=== PATIENT | male | born 1990 | race Caucasian/White ===

== ENCOUNTER 2018-03-25 08:27 | Emergency (ER) | payer OTHER, SELFPAY ==
--- NOTE | 2018-03-25 08:29 | RAD_ITS ---
STUDY: X-RAY CHEST REASON FOR EXAM: Male, 28 years old. Status post fall TECHNIQUE: Single AP portable view of the chest. COMPARISON: None. FINDINGS: Patient has been intubated with ET tube tip terminating roughly 5 cm from the nicolasa The lungs are clear and expanded. There is no demonstrated pleural abnormality. Normal size heart. Normal mediastinum and naya. Normal visualized pulmonary arteries. Normal visualized aortic arch and descending thoracic aorta. Normal visualized thoracic spine. Normal visualized ribs, clavicles, and shoulders. There is no demonstrated abnormality of the visualized soft tissue structures of the upper abdomen. RAD/Chest 1 View IMPRESSION: Normal x-ray examination of the chest. Electronically Signed: Gerry Mclean DO at 9:31 EST Tel , Service support ,
[2018-03-25 08:30] VITALS: PULSE 171; RESP 16; TEMP 36.4; O2SAT 100; BMI 24.4
--- NOTE | 2018-03-25 08:30 | RAD_ITS ---
STUDY: X-RAY - CERVICAL SPINE REASON FOR EXAM: Male, 28 years old. Status post fall. TECHNIQUE: Single lateral view(s) of the cervical spine were obtained. COMPARISON: None FINDINGS: There is straightening of the normal cervical lordosis. Normal vertebral bodies and endplates. Normal disc space heights. Normal visualized intervertebral neuroforamina. The soft tissue structures are unremarkable. RAD/Spine 1 View Any Level IMPRESSION: Limited exam with one view only. No gross evidence of acute fracture Electronically Signed: Gerry Mclean DO at 9:31 EST Tel , Service support ,
[2018-03-25] MEDS: Rocuronium Bromide 50 MG/5 ML Vial IV (08:35)
--- NOTE | 2018-03-25 08:37 | RAD_ITS ---
STUDY: X-RAY - PELVIS REASON FOR EXAM: Male, 28 years old. Status post fall 10 feet TECHNIQUE: One view of the pelvis was obtained. COMPARISON: None. FINDINGS: There is a non-specific bowel gas pattern. Normal visualized soft tissue structures. Normal bilateral iliac wings, sacroiliac joints and visualized sacrum. Normal visualized bilateral superior and inferior pubic rami. Normal pubic symphysis. Normal ischial tuberosities. Normal visualized right femoral head. Normal right acetabulum. Normal right hip joint. Normal visualized left femoral head. Normal left acetabulum. Normal left hip joint. RAD/Pelvis 1 or 2 Views IMPRESSION: Normal x-ray examination of the pelvis. Electronically Signed: Gerry Mclean DO at 9:30 EST Tel , Service support ,
[2018-03-25 08:47] VITALS: BP 142/62; PULSE 162; RESP 16; O2SAT 100
[2018-03-25 08:57] VITALS: BP 106/77; PULSE 109; RESP 16; O2SAT 100
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
[2018-03-25 09:05] VITALS: BP 127/79; PULSE 155; RESP 16; O2SAT 100
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
[2018-03-25] MEDS: Lactated Ringers 1,000 ML 999 ML IV (09:21)
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
[2018-03-25 09:27] VITALS: BP 127/79; PULSE 155; RESP 16; O2SAT 100
--- NOTE | 2018-03-25 11:01 | EKG12_ITS ---
Test Reason : Blood Pressure : / mmHG Vent. Rate : 166 BPM Atrial Rate : 166 BPM P-R Int : 094 ms QRS Dur : 094 ms QT Int : 254 ms P-R-T Axes : 075 083 068 degrees QTc Int : 422 ms Sinus tachycardia with short FL Incomplete right bundle branch block Borderline ECG Confirmed by JOSR SAGASTUME, GAGE ([id number]), staff editor TRAN [place] ([id number] on 03/28/2018 2:23:06 PM Referred By: ROYCE Confirmed By:GAGE OVALLES MD
--- NOTE | 2018-03-26 22:20 | ED.RN ---
Mother Called with concerns for lost quinones, looked through charting and called primary nurse. No one is able to recall a missing quinones at this time. Mother made aware
--- OUTSIDE RECORDS SUMMARY | 2018-05-06 21:37 | XMS RPT_ITS ---
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 MCHC 31.0 LAB PLT 150-400 K/uL High PLT 503 LAB RDW 11.5-14.5 % High RDW-CV 17.5 LAB MPV 8.5-11.5 fL Low MPV 7.9 Performed By: #### CBC #### [facility] [address] [place] [address], BASIC METABOLIC PANEL Collected: 04/15/2018 Status: F [facility] REPOS[facility] TYPE CODE TESTS RESULT OUT OF REFERENCE UNITS RANGE LAB GLU 68-110 mg/dL GLU High 116 LAB NA3 135-148 mmol/L Low NA 131 LAB POT 3.3-5.3 mmol/L K 3.8 LAB CO2 21-30 mmol/L CO2 24 LAB CHLOR 97-111 mmol/L CL 101 LAB BUN 8-22 mg/dL BUN 14 LAB CREAT 0.80-1.30 mg/dL Low CREAT 0.40 LAB CA 8.4-10.4 mg/dL Low CA 7.3 LAB ANION GAP 5-13 ANION GAP 10 LAB eGFR >=60 mL/min/1.73 sqm ESTIMATED GFR 164 (CKD-EPI) Performed By: #### LARRY8, PHOS, MG #### [facility] [address] [place] [address], PHOSPHORUS Collected: 04/15/2018 Status: F Source: THE 2:23 AM [facility] TYPE CODE TESTS RESULT OUT OF RANGE REFERENCE UNITS LAB PHOS 2.5-4.8 mg/dL PHOS 3.5 Performed By: #### BHARAT, PHOS, MG #### [facility] [address] [place] [address], MAGNESIUM Collected: 04/15/2018 Status: F [facility] REPOS[facility] TYPE CODE TESTS RESULT OUT OF RANGE REFERENCE UNITS LAB mag 1.6-2.8 mg/dL MG 1.8 Performed By: #### CH8, PHOS, MG #### [facility] [address] [place] [address], COMPLETE BLOOD COUNT Collected: 04/14/2018 Status: F [facility] PM SYSTEM REPOSITORY TYPE CODE TESTS RESULT OUT OF RANGE REFERENCE UNITS LAB WBC 4.5-11.5 K/uL High WBC 21.3 LAB RBC 4.50-5.90 M/uL Low RBC 2.70 LAB HGB 13.9-16.3 g/dL Low HGB 7.6 LAB HCT 41.0-53.0 % Low HCT 24.5 LAB MCV 80-100 fL MCV 91 LAB MCH 26.0-34.0 pg MCH 28.1 LAB MCHC 32.0-35.9 g/dL Low MCHC 31.0 LAB PLT 150-400 K/uL High PLT 519 LAB RDW 11.5-14.5 % High RDW-CV 17.2 LAB MPV 8.5-11.5 fL Low MPV 7.8 Performed By: #### CBC #### [facility] [address] [place] [address], RED BLOOD CELL Collected: 04/14/2018 Status: F Source: [facility] COMPONENT 11:18 AM SYSTEM REPOSITORY TYPE CODE TESTS RESULT OUT OF REFERENCE UNITS RANGE LAB 99 BB ORDER Product status ITEM info to follow Performed By: #### RBO #### [facility] [address] [place] [address], RED BLOOD CELL UNIT Collected: 04/14/2018 Status: C Source: [facility] STATUS 11:18 AM SYSTEM REPOSITORY TYPE CODE TESTS RESULT OUT OF REFERENCE UNITS RANGE LAB XM CROSSMATCH INTERPRETATION Compatible (E) LAB UT BLOOD PRODUCT 6200 UNIT TYPE Result Comment: A Pos LAB UN BLOOD PRODUCT [id number] UNIT INFO LAB ST BLOOD PRODUCT Issued STATUS LAB PI BLOOD PRODUCT Red Blood Cells DESCRIPTION LAB SPC BLOOD PRODUCT [id number] CODE Performed By: #### RBU #### [facility] [address] [place] [address], TYPE AND SCREEN Collected: 04/14/2018 Status: F Source: [facility] 10:23 AM SYSTEM REPOSITORY TYPE CODE TESTS RESULT OUT OF REFERENCE UNITS RANGE LAB I ABORH A ABO Positive RH TYPE LAB ABSC INT ABSC Negative INT Performed By: #### TS #### [facility] [address] [place] [address], COMPLETE BLOOD COUNT Collected: 04/14/2018 Status: F Source: [facility] 2:28 AM SYSTEM REPOSITORY TYPE CODE TESTS RESULT OUT OF RANGE REFERENCE UNITS LAB WBC 4.5-11.5 K/uL High WBC 14.5 LAB RBC 4.50-5.90 M/uL Low RBC 2.53 LAB HGB 13.9-16.3 g/dL Low HGB 7.1 LAB HCT 41.0-53.0 % Low HCT 23.2 LAB MCV 80-100 fL MCV 92 LAB MCH 26.0-34.0 pg MCH 28.1 LAB MCHC 32.0-35.9 g/dL Low MCHC 30.6 LAB PLT 150-400 K/uL High PLT 497 LAB RDW 11.5-14.5 % High RDW-CV 17.3 LAB MPV 8.5-11.5 fL Low MPV 7.8 Performed By: #### CBC #### [facility] [address] [place] [address], BASIC METABOLIC PANEL Collected: 04/14/2018 Status: F [facility] AM SYSTEM REPOSITORY TYPE CODE TESTS RESULT OUT OF REFERENCE UNITS RANGE LAB GLU 68-110 mg/dL GLU 109 LAB NA3 135-148 mmol/L NA 135 LAB POT 3.3-5.3 mmol/L K 4.0 LAB CO2 21-30 mmol/L CO2 24 LAB CHLOR 97-111 mmol/L CL 107 LAB BUN 8-22 mg/dL BUN 15 LAB CREAT 0.80-1.30 mg/dL Low CREAT 0.44 LAB CA 8.4-10.4 mg/dL Low CA 7.5 LAB ANION GAP 5-13 ANION GAP 8 LAB eGFR >=60 mL/min/1.73 sqm ESTIMATED GFR 158 (CKD-EPI) Performed By: #### BHARAT, PHOS, MG #### [facility] [address] [place] [address], PHOSPHORUS Collected: 04/14/2018 Status: F Source: [facility] 2[facility]28 [facility] REPOS[facility] TYPE CODE TESTS RESULT OUT OF RANGE REFERENCE UNITS LAB PHOS 2.5-4.8 mg/dL PHOS 3.8 Performed By: #### CHHaydee, PHOS, MG #### [facility] [address] [place] [address], MAGNESIUM Collected: 04/14/2018 Status: F [facility] AM SYSTEM REPOSITORY TYPE CODE TESTS RESULT OUT OF RANGE REFERENCE UNITS LAB mag 1.6-2.8 mg/dL MG 2.1 Performed By: #### LARRY8, PHOS, MG #### [facility] [address] [place] [address], COMPLETE BLOOD COUNT Collected: 04/13/2018 Status: F [facility] REPOS[facility] TYPE CODE TESTS RESULT OUT OF RANGE REFERENCE UNITS LAB WBC 4.5-11.5 K/uL High WBC 17.8 LAB RBC 4.50-5.90 M/uL Low RBC 2.46 LAB HGB 13.9-16.3 g/dL Low HGB 7.1 LAB HCT 41.0-53.0 % Low HCT 22.5 LAB MCV 80-100 fL MCV 92 LAB MCH 26.0-34.0 pg MCH 28.9 LAB MCHC 32.0-35.9 g/dL Low MCHC 31.6 LAB PLT 150-400 K/uL High PLT 487 LAB RDW 11.5-14.5 % High RDW-CV 17.2 LAB MPV 8.5-11.5 fL Low MPV 7.8 Performed By: #### CBC #### [facility] [address] [place] [address], ANTI FXA-LMW HEPARIN Collected: 04/13/2018 Status: F Source: [facility] 2:14 AM SYSTEM REPOSITORY Order Comment: The recommended therapeutic range for treatment of thrombosis with Low Molecular Weight Heparin is 0.5 - 1.0 IU/mL TYPE CODE TESTS RESULT OUT OF REFERENCE UNITS RANGE LAB mN IU/mL ANTI FXA-LMW 0.23 HEPARIN ASSAY Performed By: #### JANEL #### [facility] [address] [place] [address], BASIC METABOLIC PANEL Collected: 04/13/2018 Status: F Source: [facility] 2:14 AM SYSTEM REPOSITORY TYPE CODE TESTS RESULT OUT OF REFERENCE UNITS RANGE LAB GLU 68-110 mg/dL GLU High 117 LAB NA3 135-148 mmol/L Low NA 133 LAB POT 3.3-5.3 mmol/L K 3.8 LAB CO2 21-30 mmol/L CO2 21 LAB CHLOR 97-111 mmol/L CL 107 LAB BUN 8-22 mg/dL BUN 17 LAB CREAT 0.80-1.30 mg/dL Low CREAT 0.49 LAB CA 8.4-10.4 mg/dL Low CA 7.3 LAB ANION GAP 5-13 ANION GAP 9 LAB eGFR >=60 mL/min/1.73 sqm ESTIMATED GFR 151 (CKD-EPI) Performed By: #### BHARAT, PHOS, MG, HEPATIC #### [facility] [address] [place] [address], PHOSPHORUS Collected: 04/13/2018 Status: F Source: [facility] 2:14 AM [facility]POS[facility] TYPE CODE TESTS RESULT OUT OF RANGE REFERENCE UNITS LAB PHOS 2.5-4.8 mg/dL PHOS 3.9 Performed By: #### BHARAT, PHOS, MG, HEPATIC #### [facility] [address] [place] [address], MAGNESIUM Collected: 04/13/2018 Status: F Source: [facility] 2:14 AM SYSTEM REPOSITORY TYPE CODE TESTS RESULT OUT OF RANGE REFERENCE UNITS LAB mag 1.6-2.8 mg/dL MG 1.7 Performed By: #### BHARAT, PHOS, MG, HEPATIC #### [facility] [address] [place] [address], HEPATIC FUNCTION Collected: 04/13/2018 Status: F Source: [facility] PANEL 2:14 AM SYSTEM REPOSITORY TYPE CODE TESTS RESULT OUT OF REFERENCE UNITS RANGE LAB ALB 3.4-5.1 g/dL Low ALB 1.6 LAB DBILI 0.10-0.30 mg/dL DBIL 0.10 LAB TBILI 0.1-1.5 mg/dL TBIL 0.2 LAB ALKPHOS 50-190 IU/L ALK 95 LAB ALT2 7-40 IU/L High ALT 70 LAB AST2 7-40 IU/L High AST 65 LAB tp 6.2-8.3 g/dL Low TP 4.3 Performed By: #### LARRY8, PHOS, MG, HEPATIC #### [facility] [address] [place] [address], COMPLETE BLOOD COUNT Collected: 04/12/2018 Status: F [facility] REPOS[facility]ORY TYPE CODE TESTS RESULT OUT OF RANGE REFERENCE UNITS LAB WBC 4.5-11.5 K/uL High WBC 18.7 LAB RBC 4.50-5.90 M/uL Low RBC 2.67 LAB HGB 13.9-16.3 g/dL Low HGB 7.5 LAB HCT 41.0-53.0 % Low HCT 24.6 LAB MCV 80-100 fL MCV 92 LAB MCH 26.0-34.0 pg MCH 28.1 LAB MCHC 32.0-35.9 g/dL Low MCHC 30.5 LAB PLT 150-400 K/uL High PLT 566 LAB RDW 11.5-14.5 % High RDW-CV 17.4 LAB MPV 8.5-11.5 fL Low MPV 7.8 Performed By: #### CBC #### [facility] [address] [place] [address], BASIC METABOLIC PANEL Collected: 04/12/2018 Status: F [facility] AM SYSTEM REPOSITORY TYPE CODE TESTS RESULT OUT OF REFERENCE UNITS RANGE LAB GLU 68-110 mg/dL GLU High 116 LAB NA3 135-148 mmol/L NA 137 LAB POT 3.3-5.3 mmol/L K 3.6 LAB CO2 21-30 mmol/L CO2 22 LAB CHLOR 97-111 mmol/L CL 109 LAB BUN 8-22 mg/dL BUN 16 LAB CREAT 0.80-1.30 mg/dL Low CREAT 0.48 LAB CA 8.4-10.4 mg/dL Low CA 7.5 LAB ANION GAP 5-13 ANION GAP 10 LAB eGFR >=60 mL/min/1.73 sqm ESTIMATED GFR 152 (CKD-EPI) Performed By: #### BHARAT, PHOS, MG #### [facility] [address] [place] [address], PHOSPHORUS Collected: 04/12/2018 Status: F Source: THE 5:07 AM [facility] REPOS[facility] TYPE CODE TESTS RESULT OUT OF RANGE REFERENCE UNITS LAB PHOS 2.5-4.8 mg/dL PHOS 3.4 Performed By: #### CH8, PHOS, MG #### [facility] [address] [place] [address], MAGNESIUM Collected: 04/12/2018 Status: F [facility] AM SYSTEM REPOSITORY TYPE CODE TESTS RESULT OUT OF RANGE REFERENCE UNITS LAB mag 1.6-2.8 mg/dL MG 1.9 Performed By: #### LARRY8, PHOS, MG #### [facility] [address] [place] [address], COMPLETE BLOOD COUNT Collected: 04/11/2018 Status: F Source: [facility] 12:12 AM SYSTEM REPOSITORY TYPE CODE TESTS RESULT OUT OF RANGE REFERENCE UNITS LAB WBC 4.5-11.5 K/uL High WBC 14.9 LAB RBC 4.50-5.90 M/uL Low RBC 2.40 LAB HGB 13.9-16.3 g/dL Low Alert HGB 7.0 LAB HCT 41.0-53.0 % Low HCT 21.7 LAB MCV 80-100 fL MCV 90 LAB MCH 26.0-34.0 pg MCH 29.2 LAB MCHC 32.0-35.9 g/dL MCHC 32.3 LAB PLT 150-400 K/uL High PLT 483 LAB RDW 11.5-14.5 % High RDW-CV 17.3 LAB MPV 8.5-11.5 fL Low MPV 7.8 Performed By: #### CBC #### [facility] [address] [place] [address], BASIC METABOLIC PANEL Collected: 04/11/2018 Status: F Source: [facility] 12:12 AM SYSTEM REPOSITORY TYPE CODE TESTS RESULT OUT OF REFERENCE UNITS RANGE LAB GLU 68-110 mg/dL GLU High 131 LAB NA3 135-148 mmol/L Low NA 134 LAB POT 3.3-5.3 mmol/L K 3.3 LAB CO2 21-30 mmol/L CO2 24 LAB CHLOR 97-111 mmol/L CL 106 LAB BUN 8-22 mg/dL BUN 14 LAB CREAT 0.80-1.30 mg/dL Low CREAT 0.58 LAB CA 8.4-10.4 mg/dL Low CA 7.1 LAB ANION GAP 5-13 ANION GAP 7 LAB eGFR >=60 mL/min/1.73 sqm ESTIMATED GFR 141 (CKD-EPI) Performed By: #### CH8, PHOS, MG #### [facility] [address] [place] [address], PHOSPHORUS Collected: 04/11/2018 Status: F Source: THE 12:12 AM [facility] REPOSITORY TYPE CODE TESTS RESULT OUT OF RANGE REFERENCE UNITS LAB PHOS 2.5-4.8 mg/dL PHOS 3.4 Performed By: #### CH8, PHOS, MG #### [facility] [address] [place] [address], MAGNESIUM Collected: 04/11/2018 Status: F Source: [facility] 12:12 AM SYSTEM REPOSITORY TYPE CODE TESTS RESULT OUT OF RANGE REFERENCE UNITS LAB mag 1.6-2.8 mg/dL MG 1.9 Performed By: #### CH8, PHOS, MG #### [facility] [address] [place] [address], ANTI FXA-LMW HEPARIN Collected: 04/10/2018 Status: F Source: [facility] 1:42 PM SYSTEM REPOSITORY Order Comment: The recommended therapeutic range for treatment of thrombosis with Low Molecular Weight Heparin is 0.5 - 1.0 IU/mL TYPE CODE TESTS RESULT OUT OF REFERENCE UNITS RANGE LAB mN IU/mL ANTI FXA-LMW 0.11 HEPARIN ASSAY Performed By: #### JANEL #### [facility] [address] [place] [address], COMPLETE BLOOD COUNT Collected: 04/10/2018 Status: F Source: [facility] 7:33 AM SYSTEM REPOSITORY TYPE CODE TESTS RESULT OUT OF RANGE REFERENCE UNITS LAB WBC 4.5-11.5 K/uL High WBC 15.2 LAB RBC 4.50-5.90 M/uL Low RBC 2.84 LAB HGB 13.9-16.3 g/dL Low HGB 7.9 LAB HCT 41.0-53.0 % Low HCT 25.0 LAB MCV 80-100 fL MCV 88 LAB MCH 26.0-34.0 pg MCH 27.8 LAB MCHC 32.0-35.9 g/dL Low MCHC 31.6 LAB PLT 150-400 K/uL High PLT 549 LAB RDW 11.5-14.5 % High RDW-CV 17.0 LAB MPV 8.5-11.5 fL Low MPV 7.7 Performed By: #### CBC #### [facility] [address] [place] [address], BASIC METABOLIC PANEL Collected: 04/10/2018 Status: F Source: [facility] 3:11 AM SYSTEM REPOSITORY TYPE CODE TESTS RESULT OUT OF REFERENCE UNITS RANGE LAB GLU 68-110 mg/dL GLU High 122 LAB NA3 135-148 mmol/L Low NA 134 LAB POT 3.3-5.3 mmol/L K 4.9 LAB CO2 21-30 mmol/L CO2 24 LAB CHLOR 97-111 mmol/L CL 101 LAB BUN 8-22 mg/dL BUN 16 LAB CREAT 0.80-1.30 mg/dL Low CREAT 0.68 LAB CA 8.4-10.4 mg/dL Low CA 7.2 LAB ANION GAP 5-13 ANION High GAP 14 LAB eGFR >=60 mL/min/1.73 sqm ESTIMATED GFR 132 (CKD-EPI) Performed By: #### CH8, MG, CRP, HEPATIC, PAB #### [facility] [address] [place] [address], MAGNESIUM Collected: 04/10/2018 Status: F [facility] SYSTEM REPOSITORY TYPE CODE TESTS RESULT OUT OF RANGE REFERENCE UNITS LAB mag 1.6-2.8 mg/dL MG 1.7 Performed By: #### LARRY8, MG, CRP, HEPATIC, PAB #### [facility] [address] [place] [address], C-REACTIVE PROTEIN Collected: 04/10/2018 Status: F Source: THE 3:11 AM [facility] REPOSITORY TYPE CODE TESTS RESULT OUT OF RANGE REFERENCE UNITS LAB CRP <0.8 mg/dL High CRP 30.8 Performed By: #### LARRY8, MG, CRP, HEPATIC, PAB #### [facility] [address] [place] [address], HEPATIC FUNCTION Collected: 04/10/2018 Status: F [facility] 3:11 AM SYSTEM REPOSITORY TYPE CODE TESTS RESULT OUT OF REFERENCE UNITS RANGE LAB ALB 3.4-5.1 g/dL Low ALB 1.5 LAB DBILI 0.10-0.30 mg/dL DBIL 0.10 LAB TBILI 0.1-1.5 mg/dL TBIL 0.6 LAB ALKPHOS 50-190 IU/L ALK 72 LAB ALT2 7-40 IU/L High ALT 77 LAB AST2 7-40 IU/L High AST 59 LAB tp 6.2-8.3 g/dL Low TP 3.8 Performed By: #### CH8, MG, CRP, HEPATIC, PAB #### [facility] [address] [place] [address], PREALBUMIN Collected: 04/10/2018 Status: F Source: [facility] 3:11 [facility] TYPE CODE TESTS RESULT OUT OF REFERENCE UNITS RANGE LAB eT PAB 21.7-43.3 mg/dL Low PREALBUMIN 8.1 Performed By: #### CH8, MG, CRP, HEPATIC, PAB #### [facility] [address] [place] [address], PHOSPHORUS Collected: 04/10/2018 Status: F Source: THE 3:11 AM [facility] REPOSITORY TYPE CODE TESTS RESULT OUT OF RANGE REFERENCE UNITS LAB PHOS 2.5-4.8 mg/dL High PHOS 5.7 Performed By: #### PHOS #### [facility] [address] [place] [address], RED BLOOD CELL Collected: 04/09/2018 Status: F Source: [facility] COMPONENT 8:08 PM SYSTEM REPOSITORY TYPE CODE TESTS RESULT OUT OF REFERENCE UNITS RANGE LAB 99 BB ORDER Product status ITEM info to follow Performed By: #### RBO #### [facility] [address] [place] [address], RED BLOOD CELL UNIT Collected: 04/09/2018 Status: C Source: [facility] STATUS 8:08 PM SYSTEM REPOSITORY TYPE CODE TESTS RESULT OUT OF REFERENCE UNITS RANGE LAB XM CROSSMATCH INTERPRETATION Compatible (E) LAB UT BLOOD PRODUCT 6200 UNIT TYPE Result Comment: A Pos LAB UN BLOOD PRODUCT [id number] UNIT INFO LAB ST BLOOD PRODUCT Released to avail STATUS LAB PI BLOOD PRODUCT Red Blood Cells DESCRIPTION LAB SPC BLOOD PRODUCT [id number] CODE Performed By: #### RBU #### [facility] [address] [place] [address], RED BLOOD CELL UNIT Collected: 04/09/2018 Status: C Source: [facility] STATUS 8:08 PM SYSTEM REPOSITORY TYPE CODE TESTS RESULT OUT OF REFERENCE UNITS RANGE LAB XM CROSSMATCH INTERPRETATION Compatible (E) LAB UT BLOOD PRODUCT 6200 UNIT TYPE Result Comment: A Pos LAB UN BLOOD PRODUCT [id number] UNIT INFO LAB ST BLOOD PRODUCT Released to avail STATUS LAB PI BLOOD PRODUCT Red Blood Cells DESCRIPTION LAB SPC BLOOD PRODUCT [id number] CODE Performed By: #### RBU #### [facility] [address] [place] [address], RED BLOOD CELL UNIT Collected: 04/09/2018 Status: C Source: [facility] STATUS 8:08 PM SYSTEM REPOSITORY TYPE CODE TESTS RESULT OUT OF REFERENCE UNITS RANGE LAB XM CROSSMATCH INTERPRETATION Compatible (E) LAB UT BLOOD PRODUCT 6200 UNIT TYPE Result Comment: A Pos LAB UN BLOOD PRODUCT [id number] UNIT INFO LAB ST BLOOD PRODUCT Transfused STATUS LAB PI BLOOD PRODUCT Red Blood Cells DESCRIPTION LAB SPC BLOOD PRODUCT [id number] CODE Performed By: #### RBU #### [facility] [address] [place] [address], RED BLOOD CELL UNIT Collected: 04/09/2018 Status: C Source: [facility] STATUS 8:08 PM SYSTEM REPOSITORY TYPE CODE TESTS RESULT OUT OF REFERENCE UNITS RANGE LAB XM CROSSMATCH INTERPRETATION Compatible (E) LAB UT BLOOD PRODUCT 6200 UNIT TYPE Result Comment: A Pos LAB UN BLOOD PRODUCT [id number] UNIT INFO LAB ST BLOOD PRODUCT Transfused STATUS LAB PI BLOOD PRODUCT Red Blood Cells DESCRIPTION LAB SPC BLOOD PRODUCT [id number] CODE Performed By: #### RBU #### [facility] [address] [place] [address], COMPLETE BLOOD COUNT Collected: 04/09/2018 Status: F Source: [facility] 4:34 AM SYSTEM REPOSITORY TYPE CODE TESTS RESULT OUT OF RANGE REFERENCE UNITS LAB WBC 4.5-11.5 K/uL High WBC 13.5 LAB RBC 4.50-5.90 M/uL Low RBC 2.53 LAB HGB 13.9-16.3 g/dL Low HGB 7.4 LAB HCT 41.0-53.0 % Low HCT 23.4 LAB MCV 80-100 fL MCV 93 LAB MCH 26.0-34.0 pg MCH 29.2 LAB MCHC 32.0-35.9 g/dL Low MCHC 31.6 LAB PLT 150-400 K/uL High PLT 719 LAB RDW 11.5-14.5 % High RDW-CV 15.4 LAB MPV 8.5-11.5 fL Low MPV 8.0 Performed By: #### CBC #### [facility] [address] [place] [address], BASIC METABOLIC PANEL Collected: 04/09/2018 Status: F Source: [facility] 4:34 AM SYSTEM REPOSITORY TYPE CODE TESTS RESULT OUT OF REFERENCE UNITS RANGE LAB GLU 68-110 mg/dL GLU 102 LAB NA3 135-148 mmol/L Low NA 131 LAB POT 3.3-5.3 mmol/L K 4.6 LAB CO2 21-30 mmol/L CO2 27 LAB CHLOR 97-111 mmol/L CL 97 LAB BUN 8-22 mg/dL BUN 16 LAB CREAT 0.80-1.30 mg/dL Low CREAT 0.51 LAB CA 8.4-10.4 mg/dL Low CA 7.5 LAB ANION GAP 5-13 ANION GAP 12 LAB eGFR >=60 mL/min/1.73 sqm ESTIMATED GFR 148 (CKD-EPI) Performed By: #### CH8, PHOS, MG #### [facility] [address] [place] [address], PHOSPHORUS Collected: 04/09/2018 Status: F Source: THE 4:34 AM NICHOLAS [facility] REPOS[facility] TYPE CODE TESTS RESULT OUT OF RANGE REFERENCE UNITS LAB PHOS 2.5-4.8 mg/dL PHOS 2.8 Performed By: #### BHARAT, PHOS, MG #### [facility] [address] [place] [address], MAGNESIUM Collected: 04/09/2018 Status: F [facility] REPOSITORY TYPE CODE TESTS RESULT OUT OF RANGE REFERENCE UNITS LAB mag 1.6-2.8 mg/dL MG 1.8 Performed By: #### LARRY8, PHOS, MG #### [facility] [address] [place] [address], BASIC METABOLIC PANEL Collected: 04/08/2018 Status: F [facility] REPOSITORY TYPE CODE TESTS RESULT OUT OF REFERENCE UNITS RANGE LAB GLU 68-110 mg/dL GLU 100 LAB NA3 135-148 mmol/L NA 135 LAB POT 3.3-5.3 mmol/L K 4.6 LAB CO2 21-30 mmol/L CO2 29 LAB CHLOR 97-111 mmol/L CL 101 LAB BUN 8-22 mg/dL BUN 19 LAB CREAT 0.80-1.30 mg/dL Low CREAT 0.56 LAB CA 8.4-10.4 mg/dL Low CA 7.4 LAB ANION GAP 5-13 ANION GAP 10 LAB eGFR >=60 mL/min/1.73 sqm ESTIMATED GFR 143 (CKD-EPI) Performed By: #### LARRY8, MG, PHOS #### [facility] [address] [place] [address], MAGNESIUM Collected: 04/08/2018 Status: F Source: [facility] 1:23 AM SYSTEM REPOSITORY TYPE CODE TESTS RESULT OUT OF RANGE REFERENCE UNITS LAB mag 1.6-2.8 mg/dL MG 2.0 Performed By: #### LARRY8, MG, PHOS #### [facility] [address] [place] [address], PHOSPHORUS Collected: 04/08/2018 Status: F Source: THE 1:23 AM [facility] REPOSITORY TYPE CODE TESTS RESULT OUT OF RANGE REFERENCE UNITS LAB PHOS 2.5-4.8 mg/dL PHOS 3.1 Performed By: #### BHARAT, MG, PHOS #### [facility] [address] [place] [address], COMPLETE BLOOD COUNT Collected: 04/08/2018 Status: F Source: [facility] 1:22 AM SYSTEM REPOSITORY TYPE CODE TESTS RESULT OUT OF RANGE REFERENCE UNITS LAB WBC 4.5-11.5 K/uL WBC 11.1 LAB RBC 4.50-5.90 M/uL Low RBC 3.09 LAB HGB 13.9-16.3 g/dL Low HGB 9.0 LAB HCT 41.0-53.0 % Low HCT 28.8 LAB MCV 80-100 fL MCV 93 LAB MCH 26.0-34.0 pg MCH 29.1 LAB MCHC 32.0-35.9 g/dL Low MCHC 31.3 LAB PLT 150-400 K/uL High PLT 615 LAB RDW 11.5-14.5 % High RDW-CV 16.0 LAB MPV 8.5-11.5 fL Low MPV 8.3 Performed By: #### CBC #### [facility] [address] [place] [address], Observed: 04/07/2018 Status: F Source: [facility] BLOOD CULTURE 12:52 AM SYSTEM REPOSITORY C BLOOD: No Growth Performed By: #### C BLOOD #### [facility] [address] [place] [address] COMPLETE BLOOD COUNT Collected: 04/07/2018 Status: F Source: [facility] 12:51 AM SYSTEM REPOSITORY TYPE CODE TESTS RESULT OUT OF RANGE REFERENCE UNITS LAB WBC 4.5-11.5 K/uL High WBC 14.1 LAB RBC 4.50-5.90 M/uL Low RBC 2.40 LAB HGB 13.9-16.3 g/dL Low HGB 7.2 LAB HCT 41.0-53.0 % Low HCT 22.1 LAB MCV 80-100 fL MCV 92 LAB MCH 26.0-34.0 pg MCH 30.0 LAB MCHC 32.0-35.9 g/dL MCHC 32.6 LAB PLT 150-400 K/uL High PLT 635 LAB RDW 11.5-14.5 % High RDW-CV 16.7 LAB MPV 8.5-11.5 fL Low MPV 8.1 Performed By: #### CBC #### [facility] [address] [place] [address], BASIC METABOLIC PANEL Collected: 04/07/2018 Status: F Source: [facility] 12:51 AM SYSTEM REPOSITORY TYPE CODE TESTS RESULT OUT OF REFERENCE UNITS RANGE LAB GLU 68-110 mg/dL GLU High 135 LAB NA3 135-148 mmol/L NA 135 LAB POT 3.3-5.3 mmol/L K 3.9 LAB CO2 21-30 mmol/L CO2 27 LAB CHLOR 97-111 mmol/L CL 102 LAB BUN 8-22 mg/dL BUN 19 LAB CREAT 0.80-1.30 mg/dL Low CREAT 0.42 LAB CA 8.4-10.4 mg/dL Low CA 7.3 LAB ANION GAP 5-13 ANION GAP 10 LAB eGFR >=60 mL/min/1.73 sqm ESTIMATED GFR 161 (CKD-EPI) Performed By: #### CH8, PHOS, HEPATIC, MG #### [facility] [address] [place] [address], PHOSPHORUS Collected: 04/07/2018 Status: F Source: THE 12:51 AM [facility] REPOSITORY TYPE CODE TESTS RESULT OUT OF RANGE REFERENCE UNITS LAB PHOS 2.5-4.8 mg/dL Low PHOS 2.2 Performed By: #### CH8, PHOS, HEPATIC, MG #### [facility] [address] [place] [address], HEPATIC FUNCTION Collected: 04/07/2018 Status: F Source: [facility] PANEL 12:51 AM SYSTEM REPOSITORY TYPE CODE TESTS RESULT OUT OF REFERENCE UNITS RANGE LAB ALB 3.4-5.1 g/dL Low ALB 1.5 LAB DBILI 0.10-0.30 mg/dL DBIL 0.10 LAB TBILI 0.1-1.5 mg/dL TBIL 0.4 LAB ALKPHOS 50-190 IU/L ALK 64 LAB ALT2 7-40 IU/L High ALT 75 LAB AST2 7-40 IU/L High AST 76 LAB tp 6.2-8.3 g/dL Low TP 3.5 Performed By: #### CH8, PHOS, HEPATIC, MG #### [facility] [address] [place] [address], MAGNESIUM Collected: 04/07/2018 Status: F Source: [facility] 12:51 AM SYSTEM REPOSITORY TYPE CODE TESTS RESULT OUT OF RANGE REFERENCE UNITS LAB mag 1.6-2.8 mg/dL MG 1.9 Performed By: #### CH8, PHOS, HEPATIC, MG #### [facility] [address] [place] [address], TYPE AND SCREEN Collected: 04/06/2018 Status: F Source: [facility] 2:18 AM SYSTEM REPOSITORY TYPE CODE TESTS RESULT OUT OF REFERENCE UNITS RANGE LAB I ABORH A ABO Positive RH TYPE LAB ABSC INT ABSC Negative INT Performed By: #### TS #### [facility] [address] [place] [address], RED BLOOD CELL Collected: 04/06/2018 Status: F Source: [facility] COMPONENT 1:37 AM SYSTEM REPOSITORY TYPE CODE TESTS RESULT OUT OF REFERENCE UNITS RANGE LAB 99 BB ORDER Product status ITEM info to follow Performed By: #### RBO #### [facility] [address] [place] [address], RED BLOOD CELL UNIT Collected: 04/06/2018 Status: C Source: [facility] STATUS 1:37 AM SYSTEM REPOSITORY TYPE CODE TESTS RESULT OUT OF REFERENCE UNITS RANGE LAB XM CROSSMATCH INTERPRETATION Compatible (E) LAB UT BLOOD PRODUCT 6200 UNIT TYPE Result Comment: A Pos LAB UN BLOOD PRODUCT [id number] UNIT INFO LAB ST BLOOD PRODUCT Transfused STATUS LAB PI BLOOD PRODUCT Red Blood Cells DESCRIPTION LAB SPC BLOOD PRODUCT [id number] CODE Performed By: #### RBU #### [facility] [address] [place] [address], ANTI FXA-LMW HEPARIN Collected: 04/06/2018 Status: F Source: [facility] 12:44 AM SYSTEM REPOSITORY Order Comment: The recommended therapeutic range for treatment of thrombosis with Low Molecular Weight Heparin is 0.5 - 1.0 IU/mL TYPE CODE TESTS RESULT OUT OF REFERENCE UNITS RANGE LAB mN IU/mL ANTI FXA-LMW 0.22 HEPARIN ASSAY Performed By: #### JANEL #### [facility] [address] [place] [address], BASIC METABOLIC PANEL Collected: 04/06/2018 Status: F Source: [facility] 12:44 AM SYSTEM REPOSITORY TYPE CODE TESTS RESULT OUT OF REFERENCE UNITS RANGE LAB GLU 68-110 mg/dL GLU High 124 LAB NA3 135-148 mmol/L NA 135 LAB POT 3.3-5.3 mmol/L K 4.3 LAB CO2 21-30 mmol/L CO2 26 LAB CHLOR 97-111 mmol/L CL 104 LAB BUN 8-22 mg/dL BUN 20 LAB CREAT 0.80-1.30 mg/dL Low CREAT 0.51 LAB CA 8.4-10.4 mg/dL Low CA 7.2 LAB ANION GAP 5-13 ANION GAP 9 LAB eGFR >=60 mL/min/1.73 sqm ESTIMATED GFR 148 (CKD-EPI) Performed By: #### CH8, PHOS, MG #### [facility] [address] [place] [address], PHOSPHORUS Collected: 04/06/2018 Status: F Source: THE 12:44 AM [facility] REPOSITORY TYPE CODE TESTS RESULT OUT OF RANGE REFERENCE UNITS LAB PHOS 2.5-4.8 mg/dL PHOS 2.9 Performed By: #### CH8, PHOS, MG #### [facility] [address] [place] [address], MAGNESIUM Collected: 04/06/2018 Status: F Source: [facility] 12:44 AM SYSTEM REPOSITORY TYPE CODE TESTS RESULT OUT OF RANGE REFERENCE UNITS LAB mag 1.6-2.8 mg/dL MG 1.7 Performed By: #### CH8DAVIN MG #### [facility] [address] [place] [address], COMPLETE BLOOD COUNT Collected: 04/06/2018 Status: F Source: [facility] 12:44 AM SYSTEM REPOSITORY TYPE CODE TESTS RESULT OUT OF RANGE REFERENCE UNITS LAB WBC 4.5-11.5 K/uL High Alert WBC 25.6 LAB RBC 4.50-5.90 M/uL Low RBC 2.29 LAB HGB 13.9-16.3 g/dL Low Alert HGB 6.9 LAB HCT 41.0-53.0 % Low HCT 21.7 LAB MCV 80-100 fL MCV 95 LAB MCH 26.0-34.0 pg MCH 30.1 LAB MCHC 32.0-35.9 g/dL Low MCHC 31.8 LAB PLT 150-400 K/uL High PLT 619 LAB RDW 11.5-14.5 % High RDW-CV 16.5 LAB MPV 8.5-11.5 fL Low MPV 8.1 Performed By: #### CBC #### [facility]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 Collected: 03/27/2018 Status: F Source: THE 2:10 PM [facility] REPOSITORY TYPE CODE TESTS RESULT OUT OF REFERENCE UNITS RANGE LAB HEMATOCRIT 42.0-52.0 % HEMATOCRIT 45.9 LAB HEMOGLOBIN 14.0-18.0 g/dL HEMOGLOBIN 15.0 LAB F6 95.0-100.0 % OXYHEMOGLOBIN 97.9 LAB CARBOXY <3.0 % CARBOXYHEMOGLOBIN 1.1 LAB CR HBMET <3.0 % CR HBMET 0.8 Performed By: #### CR BGA, CR COOX, CR LYTES, CR GLU, CR ICA, LACT #### [facility] [address] [place] [address], ELECTROLYTES Collected: 03/27/2018 Status: F Source: THE 2:10 PM [facility] TYPE CODE TESTS RESULT OUT OF REFERENCE UNITS RANGE LAB n7 135-148 mmol/L Low SODIUM, 123 WHOLE BLOOD LAB POTWB 3.3-5.3 mmol/L 4.5 POTASSIUM, WHOLE BLOOD LAB n9 97-111 mmol/L CHLORIDE, 101 WHOLE BLOOD LAB CPCR HCO3 22-28 mmol/L CR HCO3 25 Performed By: #### CR BGA, CR COOX, CR LYTES, CR GLU, CR ICA, LACT #### [facility] [address] [place] [address], GLUCOSE, WHOLE BLOOD Collected: 03/27/2018 Status: F Source: [facility] 2:10 PM SYSTEM REPOSITORY TYPE CODE TESTS RESULT OUT OF RANGE REFERENCE UNITS LAB CR GLU 68-98 mg/dL High CR GLU 112 Performed By: #### CR BGA, CR COOX, CR LYTES, CR GLU, CR ICA, LACT #### [facility] [address] [place] [address], CALCIUM, IONIZED Collected: 03/27/2018 Status: F Source: [facility] 2:10 PM SYSTEM REPOSITORY TYPE CODE TESTS RESULT OUT OF RANGE REFERENCE UNITS LAB CR ICA 1.10-1.40 mmol/L Low CR ICA 1.07 Performed By: #### CR BGA, CR COOX, CR LYTES, CR GLU, CR ICA, LACT #### [facility] [address] [place] [address], LACTIC ACID Collected: 03/27/2018 Status: F Source: [facility] 2:10 PM SYSTEM REPOSITORY TYPE CODE TESTS RESULT OUT OF RANGE REFERENCE UNITS LAB CR LACT 0.5-2.0 mmol/L High CR LACT 2.6 Performed By: #### CR BGA, CR COOX, CR LYTES, CR GLU, CR ICA, LACT #### [facility] [address] [place] [address], COMPLETE BLOOD COUNT Collected: 03/27/2018 Status: F Source: [facility] 1:12 AM SYSTEM REPOSITORY TYPE CODE TESTS RESULT OUT OF RANGE REFERENCE UNITS LAB WBC 4.5-11.5 K/uL WBC 8.1 LAB RBC 4.50-5.90 M/uL RBC 4.87 LAB HGB 13.9-16.3 g/dL HGB 16.1 LAB HCT 41.0-53.0 % HCT 45.4 LAB MCV 80-100 fL MCV 93 LAB MCH 26.0-34.0 pg MCH 33.1 LAB MCHC 32.0-35.9 g/dL MCHC 35.5 LAB PLT 150-400 K/uL PLT 154 LAB RDW 11.5-14.5 % RDW-CV 12.3 LAB MPV 8.5-11.5 fL MPV 9.7 Performed By: #### CBC #### [facility] [address] [place] [address], ANTI FXA-LMW HEPARIN Collected: 03/27/2018 Status: F Source: [facility] 1:12 AM SYSTEM REPOSITORY Order Comment: The recommended therapeutic range for treatment of thrombosis with Low Molecular Weight Heparin is 0.5 - 1.0 IU/mL TYPE CODE TESTS RESULT OUT OF REFERENCE UNITS RANGE LAB mN IU/mL ANTI FXA-LMW 0.06 HEPARIN ASSAY Performed By: #### JANEL #### [facility] [address] [place] [address], PHOSPHORUS Collected: 03/27/2018 Status: F Source: THE 1:12 AM [facility] TYPE CODE TESTS RESULT OUT OF RANGE REFERENCE UNITS LAB PHOS 2.5-4.8 mg/dL Low PHOS 1.8 Performed By: #### PHOS, CRP, MG, PAB, CH8 #### [facility] [address] [place] [address], C-REACTIVE PROTEIN Collected: 03/27/2018 Status: F Source: THE 1:12 AM [facility] TYPE CODE TESTS RESULT OUT OF RANGE REFERENCE UNITS LAB CRP <0.8 mg/dL High CRP 25.0 Performed By: #### PHOS, CRP, MG, PAB, CH8 #### [facility] [address] [place] [address], MAGNESIUM Collected: 03/27/2018 Status: F [facility] AM SYSTEM REPOSITORY TYPE CODE TESTS RESULT OUT OF RANGE REFERENCE UNITS LAB mag 1.6-2.8 mg/dL MG 1.7 Performed By: #### PHOS, CRP, MG, PAB, CH8 #### [facility] [address] [place] [address], PREALBUMIN Collected: 03/27/2018 Status: F Source: THE 1:12 AM [facility] REPOSITORY TYPE CODE TESTS RESULT OUT OF REFERENCE UNITS RANGE LAB eT PAB 21.7-43.3 mg/dL Low PREALBUMIN 5.7 Performed By: #### PHOS, CRP, MG, PAB, CH8 #### [facility] [address] [place] [address], BASIC METABOLIC PANEL Collected: 03/27/2018 Status: F Source: [facility] 1:12 AM SYSTEM REPOSITORY TYPE CODE TESTS RESULT OUT OF REFERENCE UNITS RANGE LAB GLU 68-110 mg/dL GLU High 158 LAB NA3 135-148 mmol/L Low NA 128 LAB POT 3.3-5.3 mmol/L K 4.6 LAB CO2 21-30 mmol/L CO2 25 LAB CHLOR 97-111 mmol/L CL 99 LAB BUN 8-22 mg/dL BUN 10 LAB CREAT 0.80-1.30 mg/dL Low CREAT 0.69 LAB CA 8.4-10.4 mg/dL Low CA 7.5 LAB ANION GAP 5-13 ANION GAP 9 LAB eGFR >=60 mL/min/1.73 sqm ESTIMATED GFR 131 (CKD-EPI) Performed By: #### PHOS, CRP, MG, PAB, CH8 #### [facility] [address] [place] [address], ABO RH TYPE Collected: 03/26/2018 Status: F Source: [facility] 1:16 PM SYSTEM REPOSITORY TYPE CODE TESTS RESULT OUT OF REFERENCE UNITS RANGE LAB I ABORH A ABO Positive RH TYPE Performed By: #### ABORH #### [facility] [address] [place] [address], RED BLOOD CELL Collected: 03/26/2018 Status: F Source: [facility] COMPONENT 8:12 AM SYSTEM REPOSITORY TYPE CODE TESTS RESULT OUT OF REFERENCE UNITS RANGE LAB 99 BB ORDER Product status ITEM info to follow Performed By: #### RBO #### [facility] [address] [place] [address], RED BLOOD CELL UNIT Collected: 03/26/2018 Status: C Source: [facility] STATUS 8:12 AM SYSTEM REPOSITORY TYPE CODE TESTS RESULT OUT OF REFERENCE UNITS RANGE LAB XM CROSSMATCH INTERPRETATION Compatible (E) LAB UT BLOOD PRODUCT 6200 UNIT TYPE Result Comment: A Pos LAB UN BLOOD PRODUCT [id number] UNIT INFO LAB ST BLOOD PRODUCT Transfused STATUS LAB PI BLOOD PRODUCT Red Blood Cells DESCRIPTION LAB SPC BLOOD PRODUCT [id number] CODE Performed By: #### RBU #### [facility] [address] [place] [address], RED BLOOD CELL UNIT Collected: 03/26/2018 Status: C Source: [facility] STATUS 8:12 AM SYSTEM REPOSITORY TYPE CODE TESTS RESULT OUT OF REFERENCE UNITS RANGE LAB XM CROSSMATCH INTERPRETATION Compatible (E) LAB UT BLOOD PRODUCT 6200 UNIT TYPE Result Comment: A Pos LAB UN BLOOD PRODUCT [id number] UNIT INFO LAB ST BLOOD PRODUCT Transfused STATUS LAB PI BLOOD PRODUCT Red Blood Cells DESCRIPTION LAB SPC BLOOD PRODUCT [id number] CODE Performed By: #### RBU #### [facility] [address] [place] [address], RED BLOOD CELL UNIT Collected: 03/26/2018 Status: C Source: [facility] STATUS 8:12 AM SYSTEM REPOSITORY TYPE CODE TESTS RESULT OUT OF REFERENCE UNITS RANGE LAB XM CROSSMATCH INTERPRETATION Compatible (E) LAB UT BLOOD PRODUCT 6200 UNIT TYPE Result Comment: A Pos LAB UN BLOOD PRODUCT [id number] UNIT INFO LAB ST BLOOD PRODUCT Transfused STATUS LAB PI BLOOD PRODUCT Red Blood Cells DESCRIPTION LAB SPC BLOOD PRODUCT [id number] CODE Performed By: #### RBU #### [facility] [address] [place] [address], RED BLOOD CELL UNIT Collected: 03/26/2018 Status: C Source: [facility] STATUS 8:12 AM SYSTEM REPOSITORY TYPE CODE TESTS RESULT OUT OF REFERENCE UNITS RANGE LAB XM CROSSMATCH INTERPRETATION Compatible (E) LAB UT BLOOD PRODUCT 6200 UNIT TYPE Result Comment: A Pos LAB UN BLOOD PRODUCT [id number] UNIT INFO LAB ST BLOOD PRODUCT Transfused STATUS LAB PI BLOOD PRODUCT Red Blood Cells DESCRIPTION LAB SPC BLOOD PRODUCT [id number] CODE Performed By: #### RBU #### [facility] [address] [place] [address], PHOSPHORUS Collected: 03/26/2018 Status: F Source: THE 2:07 AM [facility] REPOSITORY TYPE CODE TESTS RESULT OUT OF RANGE REFERENCE UNITS LAB PHOS 2.5-4.8 mg/dL PHOS 3.5 Performed By: #### PHOS, HEPATIC, MG, CH8 #### [facility] [address] [place] [address], HEPATIC FUNCTION Collected: 03/26/2018 Status: F Source: THE [facility] 2:07 AM SYSTEM REPOSITORY TYPE CODE TESTS RESULT OUT OF REFERENCE UNITS RANGE LAB ALB 3.4-5.1 g/dL ALB 3.5 LAB DBILI 0.10-0.30 mg/dL High DBIL 0.40 LAB TBILI 0.1-1.5 mg/dL TBIL 1.3 LAB ALKPHOS 50-190 IU/L Low ALK 34 LAB ALT2 7-40 IU/L ALT 19 LAB AST2 7-40 IU/L AST 32 LAB tp 6.2-8.3 g/dL Low TP 3.9 Performed By: #### PHOS, HEPATIC, MG, CH8 #### [facility] [address] [place] [address], MAGNESIUM Collected: 03/26/2018 Status: F [facility] REPOS[facility] TYPE CODE TESTS RESULT OUT OF RANGE REFERENCE UNITS LAB mag 1.6-2.8 mg/dL Low MG 1.3 Performed By: #### PHOS, HEPATIC, MG, CH8 #### [facility] [address] [place] [address], BASIC METABOLIC PANEL Collected: 03/26/2018 Status: F [facility] AM SYSTEM REPOSITORY TYPE CODE TESTS RESULT OUT OF REFERENCE UNITS RANGE LAB GLU 68-110 mg/dL GLU 107 LAB NA3 135-148 mmol/L Low NA 133 LAB POT 3.3-5.3 mmol/L K 4.9 LAB CO2 21-30 mmol/L Low CO2 20 LAB CHLOR 97-111 mmol/L CL 106 LAB BUN 8-22 mg/dL BUN 10 LAB CREAT 0.80-1.30 mg/dL CREAT 0.89 LAB CA 8.4-10.4 mg/dL Low CA 7.8 LAB ANION GAP 5-13 ANION GAP 12 LAB eGFR >=60 mL/min/1.73 sqm ESTIMATED GFR 118 (CKD-EPI) Performed By: #### PHOS, HEPATIC, MG, CH8 #### [facility] [address] [place] [address], [id number] COMPLETE BLOOD COUNT Collected: 03/26/2018 Status: F Source: [facility] 2:07 AM SYSTEM REPOSITORY TYPE CODE TESTS RESULT OUT OF RANGE REFERENCE UNITS LAB WBC 4.5-11.5 K/uL High WBC 14.8 LAB RBC 4.50-5.90 M/uL RBC 5.46 LAB HGB 13.9-16.3 g/dL High HGB 18.2 LAB HCT 41.0-53.0 % HCT 51.7 LAB MCV 80-100 fL MCV 95 LAB MCH 26.0-34.0 pg MCH 33.3 LAB MCHC 32.0-35.9 g/dL MCHC 35.2 LAB PLT 150-400 K/uL PLT 195 LAB RDW 11.5-14.5 % RDW-CV 12.5 LAB MPV 8.5-11.5 fL MPV 9.9 Performed By: #### CBC #### [facility] [address] [place], [id number] XR ABDOMEN AP Observed: 03/25/2018 Status: F [facility] REPOSITORY EXAMINATION: XR ABDOMEN 1 VIEW APPORT CLINICAL HISTORY: corpak placement TECHNOLOGISTS NOTE: COMPARISON: None FINDINGS: CorPak tube enters the stomach and the tip appears to be in the fundus region. Impression: CorPak tube is in the fundus. Examination is otherwise limited. XR CHEST AP OR PA Observed: 03/25/2018 Status: F [facility] V[facility] 7:07 PM SYSTEM REPOSITORY EXAMINATION: XR CHEST 1 VIEW AP OR PAPST 03/25/2018 7:07 PM CLINICAL HISTORY: Feeding tube assessment TECHNOLOGISTS NOTE: COMPARISON: CT chest, abdomen and pelvis on 03/25/2018. FINDINGS: The x-rays obtained to evaluate the feeding tube placement. There is a Cormack feeding tube in place with the tip overlying central mediastinum, likely located in the midesophagus. IMPRESSION: The feeding tube overlies the central mediastinum, the tip is likely located in the mid esophagus. MACRO: None BLOOD GAS, ARTERIAL Collected: 03/25/2018 Status: F [facility] REPOSITORY TYPE CODE TESTS RESULT OUT OF RANGE REFERENCE UNITS LAB MODE MODE CPAP LAB fio2 FIO2 30% (CATEGORY) LAB CR PHA 7.35-7.45 Low CR PHA 7.345 LAB pco2 35.0-45.0 mm Hg Low CR PCO2 31.5 LAB CR PO2 80-100 mm Hg mm Hg High CR PO2 149 LAB CR %O2 SAT >=95.1 % CR % O2 98.9 SAT LAB CR KUN -2.0-2.0 mmol/L Low CR KUN -7.2 LAB CPCR HCO3 22-28 mmol/L Low CR HCO3 17 Performed By: #### CR BGA #### [facility] [address] [place] [address], COMPLETE BLOOD COUNT Collected: 03/25/2018 Status: F Source: [facility] 4:10 PM SYSTEM REPOSITORY TYPE CODE TESTS RESULT OUT OF RANGE REFERENCE UNITS LAB WBC 4.5-11.5 K/uL High Alert WBC 27.1 LAB RBC 4.50-5.90 M/uL RBC 5.84 LAB HGB 13.9-16.3 g/dL High HGB 19.9 LAB HCT 41.0-53.0 % High HCT 55.3 LAB MCV 80-100 fL MCV 95 LAB MCH 26.0-34.0 pg High MCH 34.1 LAB MCHC 32.0-35.9 g/dL High MCHC 36.0 LAB PLT 150-400 K/uL PLT 296 LAB RDW 11.5-14.5 % RDW-CV 12.4 LAB MPV 8.5-11.5 fL MPV 9.6 Performed By: #### CBC #### [facility] [address] [place] [address], BASIC METABOLIC PANEL Collected: 03/25/2018 Status: F Source: [facility] 4:10 PM SYSTEM REPOSITORY TYPE CODE TESTS RESULT OUT OF RANGE REFERENCE UNITS LAB GLU 68-110 mg/dL High GLU 124 LAB NA3 135-148 mmol/L NA 136 LAB POT 3.3-5.3 mmol/L High K 6.1 Result Comment: Hemolysis present LAB CO2 21-30 mmol/L Low CO2 14 LAB CHLOR 97-111 mmol/L CL High 114 LAB BUN 8-22 mg/dL BUN 13 LAB CREAT 0.80-1.30 mg/dL CREAT 0.99 LAB CA 8.4-10.4 mg/dL Low CA 7.9 LAB ANION GAP 5-13 ANION High GAP 14 LAB eGFR >=60 mL/min/1.73sq m ESTIMATED GFR (CKD-EPI) 105 Performed By: #### MG BHARAT, PHOS #### [facility] [address] [place] [address], MAGNESIUM Collected: 03/25/2018 Status: F Source: [facility] 4:10 PM SYSTEM REPOSITORY TYPE CODE TESTS RESULT OUT OF RANGE REFERENCE UNITS LAB mag 1.6-2.8 mg/dL Low MG 1.5 Result Comment: Hemolysis present Performed By: #### MG BHARAT, PHOS #### [facility] [address] [place] [address], PHOSPHORUS Collected: 03/25/2018 Status: F Source: THE 4:10 PM [facility] REPOSITORY TYPE CODE TESTS RESULT OUT OF RANGE REFERENCE UNITS LAB PHOS 2.5-4.8 mg/dL PHOS 3.2 Performed By: #### MG BHARAT, PHOS #### [facility] [address] [place] [address], BLOOD GAS, ARTERIAL Collected: 03/25/2018 Status: F Source: [facility] 1:57 PM SYSTEM REPOSITORY TYPE CODE TESTS RESULT OUT OF RANGE REFERENCE UNITS LAB MODE MODE Vent LAB fio2 FIO2 50% (CATEGORY) LAB CR PHA 7.35-7.45 Low CR PHA 7.301 LAB pco2 35.0-45.0 mm Hg CR PCO2 41.8 LAB CR PO2 80-100 mm Hg mm Hg High CR PO2 224 LAB CR %O2 SAT >=95.1 % CR % O2 99.3 SAT LAB CR KUN -2.0-2.0 mmol/L Low CR KUN -6.0 LAB CPCR HCO3 22-28 mmol/L Low CR HCO3 20 Performed By: #### CR BGA #### [facility] [address] [place] [address], LACTIC ACID Collected: 03/25/2018 Status: F Source: [facility] 1:57 PM SYSTEM REPOSITORY TYPE CODE TESTS RESULT OUT OF RANGE REFERENCE UNITS LAB CR LACT 0.5-2.0 mmol/L High CR LACT 2.4 Performed By: #### LACT #### [facility] [address] [place] [address], XR SHOULDER LEFT Observed: 03/25/2018 Status: F Source: [facility] 11:42 AM SYSTEM REPOSITORY EXAMINATION: XR SHOULDER LEFT MINIMUM 2 VIEWS, XR HUMERUS LEFT, XR ELBOW LEFT MINIMUM 3 VIEWSED CLINICAL HISTORY: trauma TECHNOLOGISTS NOTE: see elbow images for lateral distal humerus COMPARISON: None FINDINGS: Left shoulder: Grashey, transscapular and axillary views were performed. The bone mineralization is normal. No acute fracture or dislocation is seen. There are no degenerative changes. No significant soft tissue abnormality is identified. An ET tube and enteric tube are partially visualized. Left humerus: Frontal and lateral views were performed. The bone mineralization is normal. No acute fracture, dislocation, lytic or blastic lesion is seen. The soft tissues are unremarkable. Left elbow: Frontal, lateral and oblique views were performed. No acute fracture, dislocation, lytic or blastic lesion is identified. The soft tissues are unremarkable. There is no joint effusion. IMPRESSION: No acute osseous abnormality of the left shoulder, left humerus and left elbow. MACRO: None XR HUMERUS LEFT Observed: 03/25/2018 Status: F Source: [facility] 11:41 AM SYSTEM REPOSITORY EXAMINATION: XR SHOULDER LEFT MINIMUM 2 VIEWS, XR HUMERUS LEFT, XR ELBOW LEFT MINIMUM 3 VIEWSED CLINICAL HISTORY: trauma TECHNOLOGISTS NOTE: see elbow images for lateral distal humerus COMPARISON: None FINDINGS: Left shoulder: Grashey, transscapular and axillary views were performed. The bone mineralization is normal. No acute fracture or dislocation is seen. There are no degenerative changes. No significant soft tissue abnormality is identified. An ET tube and enteric tube are partially visualized. Left humerus: Frontal and lateral views were performed. The bone mineralization is normal. No acute fracture, dislocation, lytic or blastic lesion is seen. The soft tissues are unremarkable. Left elbow: Frontal, lateral and oblique views were performed. No acute fracture, dislocation, lytic or blastic lesion is identified. The soft tissues are unremarkable. There is no joint effusion. IMPRESSION: No acute osseous abnormality of the left shoulder, left humerus and left elbow. MACRO: None XR ELBOW LEFT Observed: 03/25/2018 Status: F Source: [facility] 11:40 AM SYSTEM REPOSITORY EXAMINATION: XR SHOULDER LEFT MINIMUM 2 VIEWS, XR HUMERUS LEFT, XR ELBOW LEFT MINIMUM 3 VIEWSED CLINICAL HISTORY: trauma TECHNOLOGISTS NOTE: see elbow images for lateral distal humerus COMPARISON: None FINDINGS: Left shoulder: Grashey, transscapular and axillary views were performed. The bone mineralization is normal. No acute fracture or dislocation is seen. There are no degenerative changes. No significant soft tissue abnormality is identified. An ET tube and enteric tube are partially visualized. Left humerus: Frontal and lateral views were performed. The bone mineralization is normal. No acute fracture, dislocation, lytic or blastic lesion is seen. The soft tissues are unremarkable. Left elbow: Frontal, lateral and oblique views were performed. No acute fracture, dislocation, lytic or blastic lesion is identified. The soft tissues are unremarkable. There is no joint effusion. IMPRESSION: No acute osseous abnormality of the left shoulder, left humerus and left elbow. MACRO: None CT CHEST/ABD/PELVIS W/ Observed: 03/25/2018 Status: F Source: THE [facility] 10:54 AM [facility] SYSTEM REPOSITORY EXAMINATION: CT CHEST/ABD/PELVIS W/ CLINICAL HISTORY: fall COMPARISON: None TECHNIQUE: Contiguous axial images were obtained through the chest abdomen and pelvis with intravenous contrast from the level of the thoracic inlet through the pubic symphysis. MPR sagittal and coronal reconstructions were obtained from the axial data. Before infusion of intravenous contrast, radiology personnel investigated the possibility of an allergic history and of any history of reaction to iodinated contrast material. Contrast Protocol: Omnipaque 350 [>or =100lb] 100 ml [<100 lb] 1 ml per 1 lb. INTRA-PROCEDURE MEDS: Contrast Agent [id number] 50ml Bottle 1000 milliliter Contrast Agent [id number] 100ml Bottle 100 milliliter 03/25/2018 INTRAVENOUS FINDINGS: Visualized musculoskeletal structures: Evaluation of the subcutaneous soft tissues demonstrates no acute process. No acute osseous process is seen. Cardiovascular: Unremarkable Pericardium: Unremarkable Mediastinum: Unremarkable Pleura:Unremarkable Central Airways: There is an endotracheal tube noted within the trachea at approximately the T3 level 5 cm above the level of the nicolasa. The central airways are otherwise unremarkable. Lungs: There is respiratory motion artifact. No focal pulmonary consolidation, pleural effusion or pneumothorax is visualized. Nodules: No nodules are present that require follow up. Lymph Nodes:No thoracic lymphadenopathy is evident. Bowel: There is an enteric tube with the distal tip in the gastric body. There is no focal bowel wall thickening or dilatation. The appendix is unremarkable. Hepatobiliary: Unremarkable liver without biliary dilation evident. Pancreas: unremarkable Spleen: unremarkable Adrenal Glands: unremarkable Kidneys,Ureters and Urinary bladder: The kidneys are unremarkable. There is a Calle catheter within a decompressed urinary bladder. Peritoneum and retroperitoneum: No free fluid or free air is noted Lymph Nodes: No abdominal or pelvic lymphadenopathy is evident. Pelvis: Unremarkable. IMPRESSION: 1. No evidence of acute traumatic injury to the chest, abdomen and pelvis. 2. No free intraperitoneal fluid or air. 3. ET tube and enteric tube as described. MACRO: None CT HEAD W/O CONTRAST Observed: 03/25/2018 Status: F Source: [facility] 10:54 AM SYSTEM REPOSITORY EXAMINATION: CT HEAD W/O CLINICAL HISTORY: fall TECHNOLOGISTS NOTE: COMPARISON: None TECHNIQUE: Thin axial imaging of the head was performed without intravenous contrast. FINDINGS: Acute Findings: No evidence of acute hemorrhage, mass, or infarct. Chronic Changes: None identified. Ventricles and sulci: Within normal limits for age. Other: The skull, included paranasal sinuses and orbits are unremarkable. IMPRESSION: No acute intracranial injuries. MACRO: None CT C-SPINE W/O Observed: 03/25/2018 Status: F Source: [facility] CONTRAST 10:54 AM SYSTEM REPOSITORY EXAMINATION: CT C-SPINE W/O CLINICAL HISTORY: fall TECHNOLOGISTS NOTE: COMPARISON: None TECHNIQUE: Thin isotropic axial images were obtained from the skull base to the upper thoracic spine without intravenous contrast. 2D sagittal and coronal reconstructions were obtained from the axial data. FINDINGS: Alignment: Within normal limits Craniocervical junction: Within normal limits Vertebrae: No evidence of an acute fracture. No osseous lesions. Soft Tissues: Within normal limits. Canal and foramina: Patent. IMPRESSION: No cervical spine fracture or traumatic malalignment. MACRO: None I have reviewed the study and interpretation with the resident and agree with the findings. CT T-SPINE/L-SPINE W/O Observed: 03/25/2018 Status: F Source: THE [facility] 10:54 AM [facility] SYSTEM REPOSITORY EXAMINATION: CT T-SPINE/L-SPINE W/OFBO CLINICAL HISTORY: fall TECHNOLOGISTS NOTE: COMPARISON: None TECHNIQUE: Thin axial images were obtained through the thoracolumbar region without intravenous contrast. 2D sagittal and coronal reconstructions were obtained from the axial data. FINDINGS: Alignment: Within normal limits Vertebrae: No evidence of an acute fracture. No osseous lesions. Canal and foramina: No evidence of significant spinal canal or neural foraminal stenosis. Sacrum and iliac wings: Within normal limits. IMPRESSION: No fracture or malalignment of the thoracic or lumbar spine MACRO: None I have reviewed the study and interpretation with the resident and agree with the findings. LACTIC ACID Collected: 03/25/2018 Status: F [facility] REPOSITORY TYPE CODE TESTS RESULT OUT OF RANGE REFERENCE UNITS LAB CR LACT 0.5-2.0 mmol/L High Alert CR LACT 4.5 Performed By: #### LACT #### [facility] [address] [place] [address], PROTHROMBIN TIME AND Collected: 03/25/2018 Status: F Source: [facility] 10[facility]02 [facility] TYPE CODE TESTS RESULT OUT OF REFERENCE UNITS RANGE LAB PT PAT 10.0-12.6 sec PROTIME 11.9 LAB INR 0.90-1.10 INR 1.05 Performed By: #### PT, APTT #### [facility] [address] [place] [address], PARTIAL THROMBOPLASTIN Collected: 03/25/2018 Status: F Source: THE TIME 10:02 AM [facility] TYPE CODE TESTS RESULT OUT OF RANGE REFERENCE UNITS LAB APTT 24-37 sec APTT 30 Performed By: #### PT, APTT #### [facility] [address] [place] [address], BASIC METABOLIC PANEL Collected: 03/25/2018 Status: F [facility] REPOSITORY TYPE CODE TESTS RESULT OUT OF RANGE REFERENCE UNITS LAB GLU 68-110 mg/dL High GLU 211 LAB NA3 135-148 mmol/L NA 137 LAB POT 3.3-5.3 mmol/L K 3.6 Result Comment: Hemolysis present LAB CO2 21-30 mmol/L CO2 Low 20 LAB CHLOR 97-111 mmol/L CL 109 LAB BUN 8-22 mg/dL BUN 11 LAB CREAT 0.80-1.30 mg/dL CREAT 1.07 LAB CA 8.4-10.4 mg/dL CA 8.5 LAB ANION GAP 5-13 ANION GAP 12 LAB eGFR >=60 mL/min/1.73sq m ESTIMATED GFR (CKD-EPI) 95 Performed By: #### CH8, CK, ETOH #### [facility] [address] [place] [address], CREATINE KINASE Collected: 03/25/2018 Status: F Source: [facility] 10:02 AM SYSTEM REPOSITORY TYPE CODE TESTS RESULT OUT OF REFERENCE UNITS RANGE LAB dC 57-374 IU/L CREATINE 179 KINASE Performed By: #### CH8, CK, ETOH #### [facility] [address] [place] [address], ETHANOL, SERUM Collected: 03/25/2018 Status: F Source: [facility] 10:02 AM SYSTEM REPOSITORY TYPE CODE TESTS RESULT OUT OF REFERENCE UNITS RANGE LAB ETHANOL None Detected mg/dL ETHANOL < 5 Performed By: #### CH8, CK, ETOH #### [facility] [address] [place] [address], TYPE AND SCREEN Collected: 03/25/2018 Status: F Source: [facility] 10:02 AM SYSTEM REPOSITORY TYPE CODE TESTS RESULT OUT OF REFERENCE UNITS RANGE LAB I ABORH A ABO Positive RH TYPE LAB ABSC INT ABSC Negative INT Performed By: #### TS #### [facility] [address] [place] [address], COMPLETE BLOOD COUNT Collected: 03/25/2018 Status: F Source: [facility] W/DIFF 10:02 AM SYSTEM REPOSITORY TYPE CODE TESTS RESULT OUT OF REFERENCE UNITS RANGE LAB WBC 4.5-11.5 K/uL WBC High 24.4 LAB RBC 4.50-5.90 M/uL RBC 5.19 LAB HGB 13.9-16.3 g/dL HGB High 17.6 LAB HCT 41.0-53.0 % HCT 49.9 LAB MCV 80-100 fL MCV 96 LAB MCH 26.0-34.0 pg MCH 33.9 LAB MCHC 32.0-35.9 g/dL MCHC 35.3 LAB PLT 150-400 K/uL PLT 341 LAB RDW 11.5-14.5 % RDW-CV 12.3 LAB MPV 8.5-11.5 fL MPV 9.9 LAB CPnT 31.0-76.0 % NEUTROPHILS 76.0 LAB CPIY 24.0-44.0 % LYMPHOCYTES Low 15.0 LAB CPmO 2.0-11.0 % MONOCYTES 3.0 LAB CPeO 0.1-4.0 % EOSINOPHIL 3.0 LAB BANDSM <=10 BANDS (MANUAL) 2 LAB METAM % METAMYELOCYTES (MANUAL) 1 LAB NEUTA 1.50-8.00 K/ul NEUTROPHIL High ABSOLUTE CALC 19.03 LAB QJ RBC MORPHOLOGY Normal Performed By: #### CBCD #### [facility] [address] [place] [address], URINALYSIS Collected: 03/25/2018 Status: F Source: [facility] 10:02 AM [facility] Order Comment: A negative leukocyte esterase AND negative nitrite test or absence of pyuria (urine WBC count <= 5-10) make a UTI (urinary tract infection) very unlikely in a non-neutropenic adult (<=5% likelihood in many studies). A positive leukocyte esterase, nitrite and/or pyuria is a nonspecific result. This can be seen in conditions other than a UTI e.g. asymptomatic bacteriuria, gynecologic infections,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
== END 2018-03-25 09:30 | disposition short-term general hospital (02) ==
PROVIDERS: Emergency Provider Emergency Medicine
DX: T21.33XA Burn of third degree of upper back, initial encounter (principal); T21.34XA Burn of third degree of lower back, initial encounter; T21.35XA Burn of third degree of buttock, initial encounter; T22.392A Burn of third degree of multiple sites of left shoulder and upper limb, except wrist and hand, initial encounter; T22.391A Burn of third degree of multiple sites of right shoulder and upper limb, except wrist and hand, initial encounter; T23.372A Burn of third degree of left wrist, initial encounter; T23.371A Burn of third degree of right wrist, initial encounter; T23.352A Burn of third degree of left palm, initial encounter; T23.351A Burn of third degree of right palm, initial encounter; T20.37XA Burn of third degree of neck, initial encounter; T21.31XA Burn of third degree of chest wall, initial encounter; T31.33 Burns involving 30-39% of body surface with 30-39% third degree burns; T79.8XXA Other early complications of trauma, initial encounter; R00.0 Tachycardia, unspecified; R41.0 Disorientation, unspecified; Z72.0 Tobacco use; W85.XXXA Exposure to electric transmission lines, initial encounter; Y93.89 Activity, other specified; Y92.63 Factory as the place of occurrence of the external cause; Y99.0 Civilian activity done for income or pay
CPT/HCPCS: 31500; 51702; 71045; 72020; 72170; 90715; 93005; 96374; 96375; 99251; 99285; A4216; G0463